=== PATIENT | female | born 1965 | race Caucasian/White ===

== ENCOUNTER 2017-08-08 06:30 | Inpatient (IN) | payer OTHER, MEDICARE ==
[~2017-08-08 06:30] MED LIST: Acetaminophen 500 MG Tab PO ONE; Celecoxib 200 MG Cap PO ONE; Gabapentin 300 MG Cap PO ONE; Scopolamine 1.5 MG Transdermal Patch TRDERM ONE
[2017-08-08] MEDS ORDERED: cefOXitin 2 GM Vial ONE (06:38)
[2017-08-08] MEDS ORDERED: Dextrose 5%-Lactated Ringers 1,000 ML IV SCH (07:00)
[2017-08-08] MEDS ORDERED: fentaNYL 250 MCG/5 ML SDV ONE ×3 (07:14→09:25)
[2017-08-08] MEDS ORDERED: Rocuronium 50 MG/5 ML Vial ONE ×2 (07:15→08:51)
[2017-08-08] MEDS ORDERED: Ondansetron 4 MG/2 ML SDV ONE (07:15)
[2017-08-08] MEDS ORDERED: Neostigmine Methylsulfate 1 MG/ML 5 ML Syringe ONE (07:15)
[2017-08-08] MEDS ORDERED: Propofol 200 MG/20 ML SDV ONE (07:15)
[2017-08-08] MEDS ORDERED: Dexamethasone 4 MG/ML SDV ONE (07:15)
[2017-08-08] MEDS ORDERED: Lactated Ringers 1,000 ML ONE (07:16)
[2017-08-08] MEDS ORDERED: Albuterol/Ipratropium 3.0-0.5 MG/3 ML Neb Soln NEB ONE (07:30)
[2017-08-08] MEDS ORDERED: cefOXitin 2 GM in Sodium Chloride 0.9% 50 ML IV ONE (08:00)
[2017-08-08] MEDS ORDERED: Ketamine 500 MG/5 ML MDV IV ONE (08:15)
[2017-08-08] MEDS ORDERED: Lidocaine 0.4%/D5W 2 GM/500 ML BAG IV SCH (08:15)
[2017-08-08] MEDS ORDERED: Lidocaine 2% 100 MG/5 ML Syringe IVPUSH ONE (08:15)
[2017-08-08] MEDS ORDERED: Ropivacaine 60 ML, Dexamethasone 8 MG, EPINEPHrine 0.4 MG, Sodium Chloride 0.9% 17.6 ML NERVRT SCH ×4 (08:15)
[2017-08-08] MEDS ORDERED: Meperidine PF 75 MG/ML Syringe IM ONE (12:15)
[2017-08-08] MEDS ORDERED: SCOPOLAMINE PATCH CHECK TOP SCH (13:00)
[2017-08-08] MEDS ORDERED: Labetalol 20 MG/4 ML Syringe IVPUSH PRN (13:00)
[2017-08-08] MEDS ORDERED: diphenhydrAMINE 50 MG/ML SDV IVPUSH PRN (13:00)
[2017-08-08] MEDS ORDERED: Albuterol/Ipratropium 3.0-0.5 MG/3 ML Neb Soln INH PRN (13:00)
[2017-08-08] MEDS ORDERED: Metoclopramide 10 MG/2 ML SDV IVPUSH PRN (13:00)
[2017-08-08] MEDS ORDERED: Ondansetron 4 MG/2 ML SDV IVPUSH PRN (13:00)
[2017-08-08] MEDS ORDERED: hydrOXYzine HCl 100 MG/2 ML SDV IM PRN ×2 (13:00→16:29)
[2017-08-08] MEDS: Dextrose 5%-Lactated Ringers 1,000 ML IV SCH (13:46)
[2017-08-08] MEDS ORDERED: Pantoprazole 40 MG Vial IVPUSH SCH (14:00)
[2017-08-08] MEDS: Gabapentin 250 MG/5 ML Solution ML 470 ML Bottle PO SCH ×2 (14:21→20:09)
[2017-08-08] MEDS: Lisinopril 20 MG Tab PO SCH (14:21)
[2017-08-08] MEDS: Albuterol/Ipratropium 3.0-0.5 MG/3 ML Neb Soln INH SCH ×2 (14:35→21:19)
[2017-08-08] MEDS: cefOXitin 2 GM in Sodium Chloride 0.9% 50 ML IV SCH ×2 (14:49→20:09)
[2017-08-08] MEDS ORDERED: MVI, Adult with Vitamin K 10 ML, Thiamine 200 MG, Chromium/Copper/Mang/Selen/Zn 1 ML in... IV SCH ×4 (16:00)
[2017-08-08] MEDS ORDERED: Meperidine PF 75 MG/ML Syringe IM PRN (16:24)
[2017-08-08] MEDS ORDERED: Coagulation Factor VIIa Recombinant (per MCG) 2 MG Vial IVPUSH ONE (16:45)
[2017-08-08] MEDS: Acetaminophen Soln 650 MG/20.3 ML UD Cup PO SCH ×2 (16:53→21:19)
--- NOTE | 2017-08-08 17:28 | PCM.CONS ---
H&P History of Present Illness - General Date of Service: 08/08/17 Admit Problem/Dx: Admission Diagnosis/Problem Admission Diagnosis/Problem Sanjuanita-en-Y gastrojejunostomy Source of Information: Patient, Family, Provider, RN History Limitations: Reports: No Limitations - History of Present Illness Initial Comments - Free Text/Narative: I was asked to see Waleska today after a CODE BLUE was called this afternoon. She had recently come to the floor after a laparoscopic gastric bypass procedure. While the nurse was providing care she had tonic-clonic type movements that involved her entire body. CODE BLUE was called at this point and the lidocaine infusion was discontinued. The patient did not require any medications to break the seizure like activity and it dissipated. She was confused for a short while afterwards but seems to be clearing up. She reports severe abdominal pain as well as severe back pain which is chronic but worse than usual. She does not feel short of breath. Her systolic blood pressure is greater than 213 and she did receive a dose of labetalol during the CODE BLUE. Oxygenation is adequate with supplemental oxygen and her heart rate is in the normal range. She reports no history of seizures. She did not take her blood pressure medication this morning. Lower Back Pain Score (Numeric/FACES): 2 Back Pain Score (Numeric/FACES): 10 - Related Data Allergies/Adverse Reactions: Allergies Allergy/AdvReac Type Severity Reaction Status Date / Time bupropion Allergy Anxiety Verified 08/06/17 09:53 chlorpheniramine Allergy Dizziness Verified 08/06/17 09:53 [From Actifed Cold-Allergy] phenylephrine Allergy Dizziness Verified 08/06/17 09:53 [From Actifed Cold-Allergy] triprolidine Allergy Dizziness Verified 08/06/17 09:53 [From Actifed Cold-Allergy] amoxicillin AdvReac Nausea and Verified 08/08/17 11:50 Vomiting dicloxacillin AdvReac Nausea and Verified 08/08/17 11:50 Vomiting levofloxacin AdvReac Nausea and Verified 08/08/17 11:50 Vomiting moxifloxacin AdvReac Nausea and Verified 08/08/17 11:50 Vomiting pseudoephedrine AdvReac Nausea and Verified 08/08/17 11:50 Vomiting sertraline AdvReac Nausea and Verified 08/08/17 11:50 Vomiting Home Medications: Home Meds Albuterol Sulfate [Proair Respiclick] 2 inh IH Q4H PRN 08/06/17 [History] Aspirin [Adult Low Dose Aspirin EC] 81 mg PO DAILY 08/06/17 [History] Betamethasone/Propylene Glyc [Diprolene 0.05%] 1 applic TP BID 08/06/17 [History ] Celecoxib [CeleBREX] 200 mg PO DAILY 08/06/17 [History] DULoxetine [Cymbalta] 60 mg PO BID 08/06/17 [History] Diclofenac Sodium [Voltaren 0.1% Ophth Soln] 1 applic TOP TID 08/06/17 [History] Estradiol 2 mg PO DAILY 08/06/17 [History] Gabapentin [Neurontin] 600 mg PO QID PRN 08/06/17 [History] Levothyroxine Sodium [Unithroid] 200 mcg PO DAILY 08/06/17 [History] Lisinopril 40 mg PO DAILY 08/06/17 [History] Montelukast [Singulair] 10 mg PO DAILY 08/06/17 [History] Multivitamin with Minerals [Multiple Vitamin] 1 tab PO DAILY 08/06/17 [History] Omeprazole 20 mg PO ASDIRECTED PRN 08/06/17 [History] buPROPion HCl [Wellbutrin Xl] 300 mg PO DAILY 08/06/17 [History] busPIRone [Buspar] 10 mg PO TID 08/06/17 [History] hydrOXYzine Pamoate [Vistaril] 25 mg PO Q6H PRN 08/06/17 [History] tiZANidine HCl [Zanaflex] 2 mg PO DAILY 08/06/17 [History] Past Medical History HEENT History: Reports: Otitis Media, Sinusitis Cardiovascular History: Reports: High Cholesterol, Hypertension Respiratory History: Reports: Asthma Gastrointestinal History: Reports: GERD Genitourinary History: Reports: None [employer] History: Reports: Musculoskeletal History: Reports: Back Pain, Chronic, Fracture, Neck Pain, Chronic, Other (See Below) Other Musculoskeletal History: CMT, 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; degenerative disc disease; bilateral fascets lower spine Neurological History: Reports: Migraines Psychiatric History: Reports: Anxiety, Depression Endocrine/Metabolic History: Reports: Other (See Below) Other Endocrine/Metabolic History: black thyroid syndrome Dermatologic History: Reports: Eczema - Infectious Disease History Infectious Disease History: Reports: Chicken Pox - Past Surgical History HEENT Surgical History: Reports: LASIK, Naso-Sinus Surgery, Tonsillectomy Cardiovascular Surgical History: Reports: None Respiratory Surgical History: Reports: None GI Surgical History: Reports: None Female Surgical History: Reports: Section, Hysterectomy, Salpingo- Oophorectomy Endocrine Surgical History: Reports: Thyroidectomy Neurological Surgical History: Reports: Other (See Below) Musculoskeletal Surgical History: Reports: None Dermatological Surgical History: Reports: None Social & Family History - Family History Family Medical History: Noncontributory - Tobacco Use Smoking Status *Q: Never Smoker - Caffeine Use Caffeine Use: Reports: None - Alcohol Use Alcohol Use History: No - Recreational Drug Use Recreational Drug Use: No H&P Review of Systems - Review of Systems: Review Of Systems: See Below Free Text/Narrative: A complete 12 point review of systems was obtained. Pertinent positives and negatives are noted in the history of present illness. All other systems were reviewed and were negative except as noted. Exam - Exam Exam: See Below - Vital Signs Vital Signs: Last Vital Signs Temp 36.5 C 08/08/17 16:00 Pulse 84 08/08/17 16:00 Resp 16 08/08/17 16:00 BP 128/69 08/08/17 16:00 Pulse Ox 95 08/08/17 16:00 Weight: 129.501 kg - Exam Quality Assessment: Supplemental Oxygen General: Alert, Oriented, Cooperative, Mild Distress HEENT: Conjunctiva Clear. No: Mucosa Moist & [place] (dry), Scleral Icterus Neck: Supple, Trachea Midline. No: Lymphadenopathy Lungs: Clear to Auscultation, Normal Respiratory Effort Cardiovascular: Regular Rate, Regular Rhythm. No: Systolic Murmur GI/Abdominal Exam: Soft, No Distention, Tender Extremities: No Pedal Edema. No: Increased Warmth Peripheral Pulses: 2+: Dorsalis Pedis (L), Dorsalis Pedis (R) Skin: Warm, Dry Neuro Extensive - Mental Status: Alert, Oriented x3, Slow Response to Commands Neuro Extensive - Motor, Sensory, Reflexes: CN II-XII Intact, Tremor ( Occasional whole-body which). No: Dysarthria, Expressive Aphasia, Hemeplagia (R ), Hemeplagia (L), Abnormal Motor Psychiatric: Alert, Anxious - Patient Data Lab Results Last 24 hrs: Laboratory Results - last 24 hr 08/08/17 08/08/17 08/08/17 Range/Units 07:00 07:00 07:00 WBC (4.5-11.0) K/uL RBC (3.30-5.50) M/uL Hgb (12.0-15.0) g/dL Hct (36.0-48.0) % MCV (80-98) fL MCH (27-31) pg MCHC (32-36) % Plt Count (150-400) K/uL Sodium 136 L (140-148) mmol/L Potassium 4.6 (3.6-5.2) mmol/L Chloride 101 (100-108) mmol/L Carbon Dioxide 28 (21-32) mmol/L Anion Gap 11.6 (5.0-14.0) mmol/L BUN 14 (7-18) mg/dL Creatinine 0.8 (0.6-1.0) mg/dL Est Cr Clr Drug Dosing 67.27 mL/min Estimated GFR (MDRD) > 60 (>60) Glucose 111 H (74-106) mg/dL Hemoglobin A1c 5.5 (4.5-6.2) % Calcium 9.4 (8.5-10.1) mg/dL Phosphorus 4.7 (2.5-4.9) mg/dL Magnesium 2.1 (1.8-2.4) mg/dL Total Bilirubin 0.3 (0.2-1.0) mg/dL AST 20 (15-37) U/L ALT 30 (12-78) U/L Alkaline Phosphatase 104 (46-116) U/L Total Protein 6.8 (6.4-8.2) g/dL Albumin 3.8 (3.4-5.0) g/dL Globulin 3.0 (2.3-3.5) g/dL Albumin/Globulin Ratio 1.3 (1.2-2.2) Blood Type O POSITIVE Gel Antibody Screen Negative 08/08/17 Range/Units 07:00 WBC 9.0 (4.5-11.0) K/uL RBC 4.69 (3.30-5.50) M/uL Hgb 14.2 (12.0-15.0) g/dL Hct 43.5 (36.0-48.0) % MCV 93 (80-98) fL MCH 30 (27-31) pg MCHC 33 (32-36) % Plt Count 318 (150-400) K/uL Sodium (140-148) mmol/L Potassium (3.6-5.2) mmol/L Chloride (100-108) mmol/L Carbon Dioxide (21-32) mmol/L Anion Gap (5.0-14.0) mmol/L BUN (7-18) mg/dL Creatinine (0.6-1.0) mg/dL Est Cr Clr Drug Dosing mL/min Estimated GFR (MDRD) (>60) Glucose (74-106) mg/dL Hemoglobin A1c (4.5-6.2) % Calcium (8.5-10.1) mg/dL Phosphorus (2.5-4.9) mg/dL Magnesium (1.8-2.4) mg/dL Total Bilirubin (0.2-1.0) mg/dL AST (15-37) U/L ALT (12-78) U/L Alkaline Phosphatase (46-116) U/L Total Protein (6.4-8.2) g/dL Albumin (3.4-5.0) g/dL Globulin (2.3-3.5) g/dL Albumin/Globulin Ratio (1.2-2.2) Blood Type Gel Antibody Screen Result Diagrams: 08/08/17 07:00 08/08/17 07:00 Consult PN Assessment/Plan POD#: 0 Procedures: Procedures BLOOD TYPING SEROLOGIC ABO (01/17/17) BLOOD TYPING SEROLOGIC RH(D) (01/17/17) RBC ANTIBODY SCREEN (01/17/17) Problem List Initiated/Reviewed/Updated: Yes My Orders Last 24 Hours: My Active Orders 08/08/17 13:30 Lisinopril [Prinivil] 40 mg PO DAILY Plan: ASSESSMENT AND PLAN - Seizure-like episode - tonic-clonic whole-body movements. No history of seizures. These resolved shortly after the lidocaine infusion was discontinued. There is potential for seizures or seizure-like activity with some of the anesthesia medications as ketamine as well as the lidocaine and clinically doing better since the lidocaine was stopped. There are no focal neurologic findings to suggest cerebrovascular accident. Episode dissipated quickly and no abortive medications were required. -Cardiac monitoring -Close clinical monitoring -Blood pressure management as below -Agree with stopping lidocaine Accelerated hypertension - systolic blood pressure greater than 200 though it is improving with the labetalol. She did not take her lisinopril this morning prior to surgery. -Restart lisinopril -Labetalol if needed [id number]-Zjjvm syndrome - chronic pain as well as some distal weakness. -Restart home medications as able Morbid obesity status post Sanjuanita-en-Y gastric bypass - postop cares per surgical team. Tony Castaneda M.D. Requesting Provider: Dr. Burgess Date Consult Requested: 08/08/17 Reason for Consult: Seizure-like episode Patient History Reviewed: Yes Admission H&P Reviewed: Yes Notified Requestor: No Time Spent (in minutes): 60
[2017-08-08] MEDS ORDERED: Heparin Sodium 5,000 Units/ML Vial SUBCUT SCH (18:00)
[2017-08-08] MEDS ORDERED: HYDROmorphone 1 MG/ML Syringe IVPUSH PRN (19:27)
[2017-08-08] MEDS ORDERED: Coagulation Factor VIIa Recombinant (per MCG) 2 MG Vial IVPUSH STA (19:27)
[2017-08-08] MEDS ORDERED: Iohexol 647 MG/ML 50 ML SDV PO SCH (23:45)
[2017-08-09] MEDS: Dextrose 5%-Lactated Ringers 1,000 ML IV SCH ×2 (00:36→06:56)
[2017-08-09] MEDS: cefOXitin 2 GM in Sodium Chloride 0.9% 50 ML IV SCH ×2 (02:52→09:25)
[2017-08-09] MEDS: Acetaminophen Soln 650 MG/20.3 ML UD Cup PO SCH ×4 (02:59→22:10)
[2017-08-09] MEDS: Albuterol/Ipratropium 3.0-0.5 MG/3 ML Neb Soln INH SCH ×4 (07:30→22:23)
[2017-08-09] MEDS ORDERED: Ondansetron 4 MG Tab.DIS PO PRN (07:58)
[2017-08-09] MEDS ORDERED: ALBUTEROL SULFATE IH PRN (07:59)
[2017-08-09] MEDS ORDERED: Non-Formulary Medication 1 Each (Hydroxyzine Pamoate [Vistaril] 25 MG) PO PRN (07:59)
[2017-08-09] MEDS ORDERED: Dextrose 5%-Lactated Ringers 1,000 ML IV SCH (08:00)
[2017-08-09] MEDS ORDERED: hydrOXYzine HCl 25 MG Tab PO PRN (08:20)
[2017-08-09] MEDS ORDERED: Albuterol 8 GM Inhaler INH PRN (08:22)
--- NOTE | 2017-08-09 08:55 | CR ---
UGI wo KUB HISTORY: Post Sanjuanita-en-Y bypass. COMPARISON: None FINDINGS: Contrast is seen in the distal esophagus and proximal small bowel. No extravasation of cont rast. Surgical drain present in this region. No obstruction seen. Impression: Gastric bypass without evidence for complication.
[2017-08-09] MEDS ORDERED: Non-Formulary Medication 1 Each (Lisinopril [Lisinopril] 40 MG) PO SCH (09:00)
[2017-08-09] MEDS ORDERED: Non-Formulary Medication 1 Each (Estradiol [Estradiol] 2 MG) PO SCH (09:00)
[2017-08-09] MEDS ORDERED: LEVOTHYROXINE SODIUM 200 MCG PO SCH (09:00)
[2017-08-09] MEDS ORDERED: Non-Formulary Medication 1 Each (Duloxetine [Cymbalta] 60 MG) PO SCH (09:00)
[2017-08-09] MEDS ORDERED: Diclofenac Sodium 0.1% Ophth Soln 5 ML Bottle EYERT SCH (09:00)
[2017-08-09] MEDS ORDERED: TIZANIDINE HCL 2 MG PO SCH (09:00)
[2017-08-09] MEDS ORDERED: Lisinopril 20 MG Tab PO SCH (09:00)
[2017-08-09] MEDS: Gabapentin 250 MG/5 ML Solution ML 470 ML Bottle PO SCH ×3 (09:25→22:05)
[2017-08-09] MEDS: buPROPion 100 MG Tab PO SCH ×5 (09:26→15:25)
[2017-08-09] MEDS: tiZANidine 2 MG Tab PO SCH (09:27)
[2017-08-09] MEDS: busPIRone 10 MG Tab PO SCH ×5 (09:27→22:08)
[2017-08-09] MEDS: Celecoxib 200 MG Cap PO SCH (09:28)
[2017-08-09] MEDS: Lisinopril 20 MG Tab PO SCH (09:28)
[2017-08-09] MEDS: Montelukast 10 MG Tab PO SCH (09:29)
[2017-08-09] MEDS: DULoxetine 30 MG Cap PO SCH ×2 (09:29→22:08)
[2017-08-09] MEDS: Estradiol 0.5 MG Tab PO SCH (09:31)
[2017-08-09] MEDS: Levothyroxine 100 MCG Tab PO SCH (11:46)
--- NOTE | 2017-08-09 14:59 | PCM.CONSN ---
- General Info Date of Service: 08/09/17 Subjective Update: This patient has been stable since yesterday when she experienced a generalized tonic-clonic seizure in the postoperative period. She has felt fairly well since then, denies any other neurologic symptoms, hemodynamically stable and afebrile. - Review of Systems General: Denies: Fever, Chills Pulmonary: Reports: No Symptoms Cardiovascular: Reports: No Symptoms Gastrointestinal: Reports: Abdominal Pain. Denies: Diarrhea, Difficulty Swallowing, Nausea, Vomiting Neurological: Reports: No Symptoms - Patient Data Vitals - Most Recent: Last Vital Signs Temp 98.1 F 08/09/17 14:00 Pulse 78 08/09/17 14:00 Resp 18 08/09/17 14:00 BP 121/47 L 08/09/17 14:00 Pulse Ox 92 L 08/09/17 14:00 Weight - Most Recent: 285 lb 8.013 oz I&O - Last 24 Hours: Intake & Output 08/08/17 08/09/17 08/09/17 22:59 06:59 14:59 Intake Total 1537 2385 240 Output Total 1355 1170 Balance 182 1215 240 Lab Results Last 24 Hours: Laboratory Results - last 24 hr 08/09/17 Range/Units 04:50 WBC 20.0 H (4.5-11.0) K/uL RBC 3.83 (3.30-5.50) M/uL Hgb 11.5 L D (12.0-15.0) g/dL Hct 36.2 (36.0-48.0) % MCV 95 (80-98) fL MCH 30 (27-31) pg MCHC 32 (32-36) % Plt Count 383 (150-400) K/uL Med Orders - Current: Current Medications Acetaminophen (Tylenol) 650 mg PO Q6H [facility] Last Admin: 08/09/17 09:28 Dose: 650 mg Albuterol (Ventolin Hfa) 0 gm INH Q4H PRN PRN Reason: Shortness of Breath Albuterol/Ipratropium (Duoneb 3.0-0.5 Mg/3 Ml) 3 ml INH QIDRT PAIGE Last Admin: 08/09/17 10:57 Dose: 3 ml Albuterol/Ipratropium (Duoneb 3.0-0.5 Mg/3 Ml) 3 ml INH ASDIRECTED PRN PRN Reason: BREATHING Bupropion HCl (Wellbutrin) 100 mg PO TID [facility] Last Admin: 08/09/17 11:41 Dose: Not Given Buspirone HCl (Buspar) 10 mg PO TID [facility] Last Admin: 08/09/17 09:45 Dose: 10 mg Celecoxib (Celebrex) 200 mg PO DAILY@0800 [facility] Last Admin: 08/09/17 09:28 Dose: 200 mg Cyanocobalamin (Vitamin B12) 1,000 mcg IM ONETIME ONE Stop: 08/10/17 09:01 Diclofenac Sodium (Voltaren 1% Gel) 0 gm TOP TID [facility] Diphenhydramine HCl (Benadryl) 25 - 50 mg IVPUSH Q4H PRN PRN Reason: ITCHING Duloxetine HCl (Cymbalta) 60 mg PO BID [facility] Last Admin: 08/09/17 09:29 Dose: 60 mg Estradiol (Estradiol) 2 mg PO DAILY [facility] Last Admin: 08/09/17 09:31 Dose: 2 mg Gabapentin (Neurontin) 300 mg PO TID [facility] Last Admin: 08/09/17 09:25 Dose: 300 mg Heparin Sodium (Porcine) (Heparin Sodium) 5,000 units SUBCUT Q12H [facility] Hydromorphone HCl (Dilaudid) 1 mg IVPUSH Q1H PRN PRN Reason: Pain Last Admin: 08/09/17 05:12 Dose: 1 mg Hydroxyzine HCl (Vistaril) 75 mg IM Q6H PRN PRN Reason: Pain Hydroxyzine HCl (Atarax) 25 mg PO Q6H PRN PRN Reason: Nausea Dextrose/Lactated Ringer's (Dextrose 5%-Lactated Ringers) 1,000 mls @ 100 mls/ hr IV ASDIRECTED [facility] Multivitamins/Minerals 10 ml/Thiamine HCl 200 mg/ Chromium/Copper/Manganese/ Seleni/Zn 1 ml/ Dextrose/Lactated Ringer's 1,013 mls @ 100 mls/hr IV DAILY@ 1600 [facility] Labetalol HCl (Normodyne) 5 - 15 mg IVPUSH Q1H PRN PRN Reason: SBP over 160 OR DBP over 95 Last Admin: 08/08/17 11:45 Dose: 5 mg Levothyroxine Sodium (Synthroid) 200 mcg PO ACBREAKFAST [facility] Last Admin: 08/09/17 11:46 Dose: 200 mcg Lisinopril (Prinivil) 40 mg PO DAILY [facility] Last Admin: 08/09/17 09:28 Dose: 40 mg Meperidine HCl (Demerol) 75 mg IM Q6H PRN PRN Reason: Pain Metoclopramide HCl (Reglan) 10 mg IVPUSH Q6H PRN PRN Reason: NAUSEA NOT CONTROL BY ZOFRAN Miscellaneous Information (Remove Patch) 1 ea TRDERM ONETIME ONE Stop: 08/10/17 10:01 Montelukast Sodium (Singulair) 10 mg PO DAILY [facility] Last Admin: 08/09/17 09:29 Dose: 10 mg Scopolamine Patch (Check) 1 each TOP DAILY [facility] Stop: 08/10/17 13:01 Last Admin: 08/09/17 09:31 Dose: Not Given Non-Formulary Medication (Betamethasone/Propylene Glyc [Diprolene 0.05%]) 1 applic TP BID [facility] Ondansetron HCl (Zofran) 4 mg IVPUSH Q4H PRN PRN Reason: Nausea/Vomiting Ondansetron HCl (Zofran Odt) 4 mg PO Q4H PRN PRN Reason: Nausea/Vomiting Pantoprazole Sodium (Protonix Granules) 40 mg PO Q24H [facility] Tizanidine HCl (Zanaflex) 2 mg PO DAILY [facility] Last Admin: 08/09/17 09:27 Dose: 2 mg Discontinued Medications Acetaminophen (Tylenol Extra Strength) 1,000 mg PO ONETIME ONE Stop: 08/08/17 06:31 Last Admin: 08/08/17 07:16 Dose: 1,000 mg Albuterol/Ipratropium (Duoneb 3.0-0.5 Mg/3 Ml) 3 ml NEB ONETIME ONE Stop: 08/08/17 07:31 Last Admin: 08/08/17 07:47 Dose: 3 ml Cefoxitin Sodium (Mefoxin) Confirm Administered Dose 2 gm .ROUTE .STK-MED ONE Stop: 08/08/17 06:39 Last Admin: 08/08/17 07:37 Dose: 2 gm Celecoxib (Celebrex) 200 mg PO ONETIME ONE Stop: 08/08/17 06:31 Last Admin: 08/08/17 07:15 Dose: 200 mg Ropivacaine 60 ml/Dexamethasone 8 mg/Epinephrine HCl 0.4 mg/ Sodium Chloride 17.6 ml 0 ml NERVRT ASDIRECTED [facility] Last Admin: 08/08/17 08:58 Dose: 2 syringe Dexamethasone (Dexamethasone) Confirm Administered Dose 4 mg .ROUTE .STK-MED ONE Stop: 08/08/17 07:16 Factor VIIa (Recombinant) (Novoseven Rt) 2,000 mcg IVPUSH ONETIME ONE Stop: 08/08/17 16:46 Last Admin: 08/08/17 16:46 Dose: 2,000 mcg Factor VIIa (Recombinant) (Novoseven Rt) 2,000 mcg IVPUSH STAT STA Stop: 08/08/17 19:28 Last Admin: 08/08/17 20:00 Dose: 2,000 mcg Fentanyl (Sublimaze) Confirm Administered Dose 250 mcg .ROUTE .STK-MED ONE Stop: 08/08/17 07:15 Fentanyl (Sublimaze) Confirm Administered Dose 250 mcg .ROUTE .STK-MED ONE Stop: 08/08/17 08:45 Fentanyl (Sublimaze) Confirm Administered Dose 250 mcg .ROUTE .STK-MED ONE Stop: 08/08/17 09:26 Gabapentin (Neurontin) 600 mg PO ONETIME ONE Stop: 08/08/17 06:31 Last Admin: 08/08/17 07:16 Dose: 600 mg Glycopyrrolate () Confirm Administered Dose 1 mg .ROUTE .STK-MED ONE Stop: 08/08/17 07:16 Heparin Sodium (Porcine) (Heparin Lock Flush 100 Units/Ml) Confirm Administered Dose 1,000 units .ROUTE .STK-MED ONE Stop: 08/08/17 07:18 Last Admin: 08/08/17 09:13 Dose: 500 units Hydroxyzine HCl (Vistaril) 75 - 100 mg IM Q4H PRN PRN Reason: pain Last Admin: 08/08/17 12:29 Dose: 75 mg Cefoxitin Sodium 2 gm/ Sodium (Chloride) 50 mls @ 100 mls/hr IV ONETIME ONE Stop: 08/08/17 08:29 Last Admin: 08/08/17 07:48 Dose: 100 mls/hr Dextrose/Lactated Ringer's (Dextrose 5%-Lactated Ringers) 1,000 mls @ 100 mls/ hr IV ASDIRECTED [facility] Last Admin: 08/08/17 07:11 Dose: 100 mls/hr Lidocaine HCl/Dextrose (Lidocaine 2 Gm/D5w 500 Ml) 2 gm in 500 mls @ 30 mls/hr IV .[id number] [facility] PRN Reason: 2 MG/MIN Last Admin: 08/08/17 08:15 Dose: 2 mg/min, 30 mls/hr Ketamine HCl 100 mg/ Sodium (Chloride) 100 mls @ 16.5 mls/hr IV ASDIRECTED [facility] PRN Reason: 5 MCG/KG/MIN Stop: 08/08/17 14:19 Lactated Ringer's (Ringers, Lactated) Confirm Administered Dose 1,000 mls @ as directed .ROUTE .STK-MED ONE Stop: 08/08/17 07:17 Dextrose/Lactated Ringer's (Dextrose 5%-Lactated Ringers) 1,000 mls @ 175 [facility]ls[facility] Last Admin: 08/09/17 06:56 Dose: 175 mls/hr Multivitamins/Minerals 10 ml/Thiamine HCl 200 mg/ Chromium/Copper/Manganese/ Seleni/Zn 1 ml/ Dextrose/Lactated Ringer's 1,013 mls @ 175 mls/hr IV DAILY@ 1600 [facility] Last Admin: 08/08/17 18:06 Dose: 175 mls/hr Cefoxitin Sodium 2 gm/ Sodium (Chloride) 50 mls @ 100 mls/hr IV Q6H [facility] Stop: 08/09/17 08:29 Last Admin: 08/09/17 09:25 Dose: 100 mls/hr Iohexol (Omnipaque-300) 50 ml PO .ASDIRECTED [facility] Last Admin: 08/09/17 04:18 Dose: 50 ml Ketamine HCl (Ketalar) 28 mg IV ONETIME ONE Stop: 08/08/17 08:16 Last Admin: 08/08/17 12:39 Dose: Not Given Lidocaine HCl (Xylocaine 2%) 130 mg IVPUSH ONETIME ONE Stop: 08/08/17 08:16 Last Admin: 08/08/17 12:39 Dose: Not Given Lisinopril (Prinivil) 40 mg PO DAILY [facility] Last Admin: 08/09/17 09:29 Dose: 40 mg Meperidine HCl (Demerol) 75 mg IM ONETIME ONE Stop: 08/08/17 12:16 Last Admin: 08/08/17 12:28 Dose: 75 mg Neostigmine Methylsulfate (Neostigmine) Confirm Administered Dose 5 mg .ROUTE .STK-MED ONE Stop: 08/08/17 07:16 Ondansetron HCl (Zofran) Confirm Administered Dose 4 mg .ROUTE .STK-MED ONE Stop: 08/08/17 07:16 Pantoprazole Sodium (Protonix Iv) 40 mg IVPUSH Q24H [facility] Last Admin: 08/08/17 14:20 Dose: 40 mg Propofol (Diprivan 20 Ml) Confirm Administered Dose 200 mg .ROUTE .STK-MED ONE Stop: 08/08/17 07:16 Rocuronium [place] (Zemuron) Confirm Administered Dose 50 mg .ROUTE .STK-MED ONE Stop: 08/08/17 07:16 Rocuronium [place] (Zemuron) Confirm Administered Dose 50 mg .ROUTE .STK-MED ONE Stop: 08/08/17 08:52 Scopolamine (Transderm-Scop) 1.5 mg TRDERM ONETIME ONE Stop: 08/08/17 06:31 Last Admin: 08/08/17 07:17 Dose: 1.5 mg - Exam Quality Assessment: DVT Prophylaxis General: Alert, Oriented, Cooperative, No Acute Distress Lungs: Clear to Auscultation, Normal Respiratory Effort Cardiovascular: Regular Rate, Regular Rhythm, No Murmurs GI/Abdominal Exam: Soft, No Organomegaly, Tender. No: Distended, Guarding, Rigid, Rebound Extremities: Non-Tender, No Pedal Edema Skin: Warm, Dry Consult PN Assessment/Plan Procedures: Procedures BLOOD TYPING SEROLOGIC ABO (01/17/17) BLOOD TYPING SEROLOGIC RH(D) (01/17/17) RBC ANTIBODY SCREEN (01/17/17) Problem List Initiated/Reviewed/Updated: Yes Plan: ASSESSMENT AND PLAN - Seizure- tonic-clonic whole-body movements. No history of seizures. These resolved shortly after the lidocaine infusion was discontinued. There is potential for seizures or seizure-like activity with some of the anesthesia medications as ketamine as well as the lidocaine and clinically doing better since the lidocaine was stopped. There are no focal neurologic findings to suggest cerebrovascular accident. Episode dissipated quickly and no abortive medications were required. No further evidence of seizure activity since yesterday afternoon. -Cardiac monitoring -Close clinical monitoring -Blood pressure management as below -Agree with stopping lidocaine Accelerated hypertension - blood pressure under much better control since yesterday -Restart lisinopril -Labetalol if needed Tqqrvss-Ipwnf-Dukrc syndrome - chronic pain as well as some distal weakness. -Restart home medications as able Morbid obesity status post Sanjuanita-en-Y gastric bypass - postop cares per surgical team.
[2017-08-09] MEDS: MVI, Adult with Vitamin K 10 ML, Thiamine 200 MG, Chromium/Copper/Mang/Selen/Zn 1 ML in... IV SCH ×4 (15:15)
[2017-08-09] MEDS: Pantoprazole 40 MG Delayed-Release Granules 1 Packet PO SCH (15:16)
[2017-08-09] MEDS: Diclofenac Sodium 1% Gel 100 GM Tube TOP SCH ×2 (16:51→22:09)
--- NOTE | 2017-08-09 17:08 | PN ---
DATE OF SERVICE: 08/09/2017 HISTORY OF PRESENT ILLNESS: Waleska is postop day 1 following a Sanjuanita-en-Y gastric bypass surgery. She had excessive oozing in her NYA drain. She was given 2 doses of factor VII. She also had a seizure after coming back up to the floor from the recovery room, thought to be secondary to lidocaine etiology. Vital signs have been stable. She is alert and orientated. Nursing staff thought she was somewhat confused, but at the time of report, she seemed to be clear and seemed to be alert and orientated. REVIEW OF SYSTEMS: Remainder of review of systems negative for any pertinent positives and negatives. PHYSICAL EXAMINATION: GENERAL: Waleska Markham is a 52-year-old female on TPR. VITAL SIGNS: Temperature is not recorded, pulse 88, blood pressure 138/62, respirations are 18, and O2 of 92%. HEENT: Negative. NECK: Supple. HEART: Regular rate and rhythm. LUNGS: Clear. ABDOMEN: Dressings dry and intact. Abdominal binder is on. NYA drain intact, draining a red drainage, total of 400 mL per 24 hours. EXTREMITIES: Without peripheral edema. GENITOURINARY: Tena catheter intact. ASSESSMENT: 1. Laparoscopic Sanjuanita-en-Y gastric bypass surgery and insertion of central vein catheter for morbid obesity and inadequate venous access. 2. Excessive oozing from NYA drain, requiring factor VII x2 in postop. 3. Postop seizure. PLAN: 1. Decrease IV to 100 mL per hour. 2. Step 2 gastric bypass diet without cereal. 3. Discontinue Tena catheter. 4. Dressing off. 5. May shower. 6. To restart home medication. Wellbutrin was changed from sustained or XL to 100 mg p.o. t.i.d. 7. BuSpar 10 mg t.i.d. 8. Voltaren 1% gel topical t.i.d. 9. Cymbalta 60 mg p.o. b.i.d. 10.Estradiol 2 mg p.o. daily. 11.Singulair 10 mg p.o. daily. 12.Zanaflex 2 mg p.o. daily scheduled. DISCUSSION: 1. Regarding importance of compliance with gastric bypass diet. Nursing staff thought the patient was eating from her 's bowl that he brought from home. 2. The patient was instructed not to take her home medication. She had taken her Wellbutrin XL. Pharmacy staff will discuss the importance of immediate-release medication versus slow-acting in regard to absorption following Sanjuanita-en-Y gastric bypass surgery. We will evaluate p.r.n. or in a.m. Cori Lopez PA-C /[id number]
[2017-08-09] MEDS ORDERED: Albuterol/Ipratropium 3.0-0.5 MG/3 ML Neb Soln ONE (22:21)
[2017-08-10] MEDS: Acetaminophen Soln 650 MG/20.3 ML UD Cup PO SCH ×5 (04:05→21:00)
[2017-08-10] MEDS ORDERED: Albuterol/Ipratropium 3.0-0.5 MG/3 ML Neb Soln ONE (07:23)
[2017-08-10] MEDS: Albuterol/Ipratropium 3.0-0.5 MG/3 ML Neb Soln INH SCH ×4 (07:27→21:05)
[2017-08-10] MEDS ORDERED: Magnesium Hydroxide 400 MG/5 ML Susp 30 ML Cup PO PRN (07:48)
[2017-08-10] MEDS ORDERED: Sodium Chloride 0.9% 10 ML Syringe IV PRN (07:48)
[2017-08-10] MEDS ORDERED: Magnesium Hydroxide 400 MG/5 ML Susp 30 ML Cup PO ONE (08:00)
[2017-08-10] MEDS: buPROPion 100 MG Tab PO SCH ×3 (08:03→20:58)
[2017-08-10] MEDS: Celecoxib 200 MG Cap PO SCH (08:03)
[2017-08-10] MEDS: Levothyroxine 100 MCG Tab PO SCH (08:04)
[2017-08-10] MEDS ORDERED: Cyanocobalamin (Vitamin B12) 1,000 MCG/ML SDV IM ONE (09:00)
[2017-08-10] MEDS: Betamethasone Dipropionate 0.05% Crm 15 GM Tube TOP SCH ×4 (09:33→21:07)
[2017-08-10] MEDS: Gabapentin 250 MG/5 ML Solution ML 470 ML Bottle PO SCH ×3 (09:35→21:05)
[2017-08-10] MEDS: Lisinopril 20 MG Tab PO SCH (09:36)
[2017-08-10] MEDS: tiZANidine 2 MG Tab PO SCH (09:36)
[2017-08-10] MEDS: DULoxetine 30 MG Cap PO SCH ×2 (09:37→20:58)
[2017-08-10] MEDS: busPIRone 10 MG Tab PO SCH ×3 (09:37→20:59)
[2017-08-10] MEDS: Estradiol 0.5 MG Tab PO SCH (09:37)
[2017-08-10] MEDS: Montelukast 10 MG Tab PO SCH (09:38)
[2017-08-10] MEDS: Diclofenac Sodium 1% Gel 100 GM Tube TOP SCH ×3 (11:27→21:07)
[2017-08-10] MEDS: Pantoprazole 40 MG Delayed-Release Granules 1 Packet PO SCH (14:25)
[2017-08-10] MEDS: MVI, Adult with Vitamin K 10 ML, Thiamine 200 MG, Chromium/Copper/Mang/Selen/Zn 1 ML in... IV SCH ×4 (16:44)
[2017-08-11] MEDS: Acetaminophen Soln 650 MG/20.3 ML UD Cup PO SCH (04:11)
[2017-08-11] MEDS: Albuterol/Ipratropium 3.0-0.5 MG/3 ML Neb Soln INH SCH (08:40)
[2017-08-11] MEDS: buPROPion 100 MG Tab PO SCH (09:45)
[2017-08-11] MEDS: Montelukast 10 MG Tab PO SCH (09:45)
[2017-08-11] MEDS: Diclofenac Sodium 1% Gel 100 GM Tube TOP SCH (09:45)
[2017-08-11] MEDS: Celecoxib 200 MG Cap PO SCH (09:45)
[2017-08-11] MEDS: Gabapentin 250 MG/5 ML Solution ML 470 ML Bottle PO SCH (09:45)
[2017-08-11] MEDS: Estradiol 0.5 MG Tab PO SCH (09:45)
[2017-08-11] MEDS: DULoxetine 30 MG Cap PO SCH (09:45)
[2017-08-11] MEDS: busPIRone 10 MG Tab PO SCH (09:45)
[2017-08-11] MEDS: Levothyroxine 100 MCG Tab PO SCH (09:45)
[2017-08-11] MEDS: Betamethasone Dipropionate 0.05% Crm 15 GM Tube TOP SCH (09:45)
[2017-08-11] MEDS: Lisinopril 20 MG Tab PO SCH (09:45)
[2017-08-11] MEDS: tiZANidine 2 MG Tab PO SCH (09:46)
--- NOTE | 2017-08-14 16:40 | PN ---
DATE OF SERVICE: 08/10/2017 The patient has been afebrile with stable vital signs. Blood pressure was noted to be somewhat high, little bit better now that the cuff has been placed on her forearm. She is getting her lisinopril. Otherwise, continues to have some oozing, although clinically appears to be stable coming out the NYA site, there is some old blood. We will check a hemoglobin tomorrow. Otherwise, we will saline lock her today. Encouraged increased activity, have her get in the shower, and encouraged improved oral intake. We will give her some bowel stimulation as well. Wayne Burgess MD /[id number]
--- NOTE | 2017-08-15 07:50 | DISCH ---
FINAL DIAGNOSES: 1. Morbid obesity. 2. Marked hepatomegaly. 3. Paraesophageal diaphragmatic hernia associated with mediastinal lipoma. 4. Immobile small bowel secondary to fatty infiltration of mesentery requiring small bowel resection. SECONDARY DIAGNOSES: Include: 1. Depression and anxiety. 2. Fibromyalgia. 3. History of hypertension. 4. Treated hypothyroidism. 5. Gastroesophageal reflux disease. 6. Degenerative disc disease. 7. Myoclonal gammopathy with associated neuropathy. OPERATIVE PROCEDURES: This was done on 08/08/2017; would be laparoscopic Sanjuanita-en-Y gastric bypass with long limb gastroenterostomy, Yasmany-Cut needle liver biopsy, repair of paraesophageal diaphragmatic hernia along with excision of mediastinal lipoma and small bowel resection to facilitate mobility of jejunojejunostomy. HOSPITAL COURSE: This is a 52-year-old female presenting with a longstanding morbid obesity and perhaps with worsening comorbidities. After preoperative evaluation and discussion, she wished to proceed with a gastric bypass procedure. This was done on the date of admission. Postoperatively, the patient did have some oozing from the NYA drains and received 2 doses of activated factor VII, but at no point was hemodynamically unstable. Her discharge hemoglobin was 10.1. Otherwise, the patient has had no significant postoperative problems. She did have a period of some urinary retention requiring reinsertion of Tena catheter, but since its removal, has had no further problems. She is tolerating step-2 diet and basically is using narcotics at this point for pain management, simply the Celebrex, gabapentin and Tylenol. She will be continued on her usual home medications, splitting them as appropriately with the Wellbutrin XL being substituted for IR with a b.i.d. dosing for the first 2 weeks postoperatively. She will be receiving a one-month course of magnesium oxide with postoperative magnesium being recorded slightly above 8. She has been instructed to continue the step-2 diet until that appointment and hold her vitamins and other supplements until after the first appointment.
--- NOTE | 2017-08-19 09:37 | OR ---
DATE OF PROCEDURE: 08/08/2017 PREOPERATIVE DIAGNOSES: 1. Morbid obesity. 2. Inadequate peripheral venous access. POSTOPERATIVE DIAGNOSES: 1. Morbid obesity. 2. Marked hepatomegaly. 3. Paraesophageal diaphragmatic hernia. 4. Mediastinal lipoma. 5. Immobile small bowel secondary to fatty infiltration of the small bowel mesentery. 6. Inadequate peripheral venous access. PROCEDURES PERFORMED: 1. Laparoscopic Sanjuanita-en-Y gastric bypass with long limb gastroenterostomy (22814). 2. Yasmany-Cut needle liver biopsy (40076). 3. Repair of paraesophageal diaphragmatic hernia (41389). 4. Excision of mediastinal lipoma (63223). 5. Small bowel resection to facilitate mobility of jejunojejunostomy to allow tension-free gastrojejunostomy (35438). 6. Insertion of left subclavian vein triple-lumen catheter (16986). ANESTHESIA: General. BURLAP BAG SEWER: Cori Lopez PA-C INDICATIONS FOR PROCEDURE: This is a 52-year-old presenting with longstanding morbid obesity and increasingly significant comorbidities. After preoperative evaluation and discussion, she wished to proceed with a gastric bypass procedure. On preoperative evaluation, noted to have very limited peripheral venous access, and a central venous catheter will be placed as well. Potential risks of the procedures including bleeding, infection, injury to underlying viscera, leaks from various GI tract closures, possible problems with bowel obstruction over time, as well as the possibility of cardiopulmonary, septic, or hemorrhagic complications leading to were all discussed, and the patient wishes to proceed. Additionally, with regard to the central line, additional possible complications such as injury to the vasculature or lungs were likewise gone over, and the patient wishes to proceed. PROCEDURE IN DETAIL: The patient was taken to the operating room and placed in a supine position. After general endotracheal anesthesia was induced, she was then converted to a lithotomy position. Initially, the upper chest and neck areas were prepped and draped, left subclavian vein cannulated, the guidewire passed, and over the guidewire, a triple-lumen catheter inserted. Good in and outflow was noted, and the ports were flushed with heparinized saline, and the catheter was secured to the skin with some 3-0 silk. Subsequent chest x-ray showed good catheter placement. Following this, the abdomen was prepped and draped, and an orogastric tube was placed. In the area 15 cm inferior, 5 cm left of xiphoid process, a transverse incision was made and the peritoneal cavity entered under direct vision with Optiview trocar, inflated to 15 mmHg pressure of CO2. Laparoscope was then reinserted. No underlying trocar insertion site injuries were seen. Following this, under direct vision, bilateral subcostal fat blocks were placed with direct visualization of the needle tip to be within the transversus abdominis plane. Standard injection was placed bilaterally. Following this, 5 additional trocars were placed across the upper mid abdomen, and general exploration was undertaken. The patient was noted to have marked hepatomegaly with liver volume being roughly 2 to 3 times the normal, the liver grossly fatty infiltrated. Yasmany-Cut needle biopsies obtained from the left lobe of the liver. Minimal bleeding from the biopsy sites, was controlled with electrocautery. The omentum was then divided in the midline at the level of the transverse colon. This allowed identification of the small bowel to the ligament of Treitz. Small bowel was then traced out 200 cm distal to that point, where it was divided transversely with a REYNALDO stapler. The biliopancreatic limb side of this divided small bowel was noted to be quite immobile due to marked thickening of the mesentery of the small bowel, which would tend to hinder the mobility of the jejunojejunostomy to allow tension-free anastomosis at the level of the gastrojejunostomy. Given this, around 10 cm of the small bowel on the biliopancreatic limb side was resected, after dividing the underlying mesentery, and dividing the bowel once again with the REYNALDO stapler, and that specimen delivered from the field. The small bowel was then traced out distally and additional 200 cm where the [id number] enteroenterostomy was accomplished with internal firing of the Endo-REYNALDO 60 mm stapler. The common opening was then closed transversely with the same stapler, angles anastomosed, and mesenteric defect approximated with some 0 Ethibond stitch, along with fibrin sealant. The divided end of the Sanjuanita limb was then from the mesentery for a few centimeters, which allowed an antecolic position of the Sanjuanita limb up to the level of the gastroesophageal junction without tension. The liver was then retracted anteriorly. The patient was noted to have a moderate-sized paraesophageal diaphragmatic hernia. This contained some prolapse of the gastric fundus and perigastric fat in a plane anterior to the course of the esophagus. This was reduced, and the peritoneum overlying it incised and reflected downward. A mediastinal lipoma was encountered during the course of dissection which, to facilitate adequate repair of the hernia, was excised and sent for pathologic evaluation. An anterior repair of the diaphragmatic hernia was accomplished with a series of 0 Ethibond sutures reinforced with PTFE pledgets. The gastrointestinal balloon catheter was inflated to 15 mL and pulled up snugly against the EG junction. Gastric wall over the apex of the balloon was marked with electrocautery, and the balloon catheter deflated and pulled up from the esophagus. The lesser omental tissue adjacent to the gastric cardia was then incised, allowing dissection behind the stomach at that level. Pouch formation was initiated with transverse firing of the REYNALDO stapler at the level of the cauterized danial in the gastric cardia. The pouch was then completed with some additional firings of REYNALDO staplers up to and through the angle of His. Upon completion of the pouch, both staple lines were noted to be intact. The anvil of a 25-mm EEA stapler was attached to Heard sump-type tube that was brought down through the mouth and taken out through a small opening in the gastric pouch, allowing the anvil likewise to be placed into the gastric pouch. Divided end of the Sanjuanita limb was then opened, and the main body of the EEA stapler passed several centimeters into the lumen of the small bowel, brought up to the anvil, and united with it, thus creating the gastrojejunostomy. Upon removal of the stapler, double donuts of mucosa were noted within the small bowel, was closed off with a vascular staple line. Gastrojejunostomy was then reinforced with some 3-0 Vicryl seromuscular stitch, along with a fibrin sealant. A leak test was accomplished with injection of 120 mL of air in the gastric pouch while submerged in the cefoxitin-containing saline solution. No leaks were identified. A single Angelito- Brice drain was taken out through the left lateral trocar site and positioned adjacent to the gastrojejunostomy,and from there, up into the splenic fossa. The trocars were then sequentially removed. The peritoneal cavity was deflated. Incisions were closed with 4-0 Vicryl subcuticular stitch, which was also used to affix the drain. A dressing was applied. The patient was taken to the recovery room in satisfactory condition. Physician payroll administrative assistant, Cori Lopez, played an essential role in assisting in this case, helping to position the patient, retract structures as needed, as well as suturing and cutting sutures as indicated. The presence improved patient safety and decreased operative time. Wayne Burgess MD /[id number]
== END 2017-08-11 09:40 | disposition home or self-care (01) | DRG 621 ==
LOC: JP.SDS 06:30 → JP.MS 06:30 → EDSTATUS 09:30 → JP.2SS 12:00
PROVIDERS: ADMIT Surgery; ATTEND Surgery
PROC: 0D164ZA Bypass Stomach to Jejunum, Percutaneous Endoscopic Approach (ICD-10-PCS; principal; 2017-08-08)
PROC: 0BQT4ZZ Repair Diaphragm, Percutaneous Endoscopic Approach (ICD-10-PCS; 2017-08-08)
PROC: 0FB24ZX Excision of Left Lobe Liver, Percutaneous Endoscopic Approach, Diagnostic (ICD-10-PCS; 2017-08-08)
PROC: 3E0T3BZ Introduction of Anesthetic Agent into Peripheral Nerves and Plexi, Percutaneous Approach (ICD-10-PCS; 2017-08-08)
PROC: 0WBC4ZX Excision of Mediastinum, Percutaneous Endoscopic Approach, Diagnostic (ICD-10-PCS; 2017-08-08)
PROC: 0DB94ZX Excision of Duodenum, Percutaneous Endoscopic Approach, Diagnostic (ICD-10-PCS; 2017-08-08)
PROC: 05HY33Z Insertion of Infusion Device into Upper Vein, Percutaneous Approach (ICD-10-PCS; 2017-08-08)
DX: E66.01 Morbid (severe) obesity due to excess calories (principal); D17.4 Benign lipomatous neoplasm of intrathoracic organs; Z68.42 Body mass index [BMI] 45.0-49.9, adult; K44.9 Diaphragmatic hernia without obstruction or gangrene; R16.0 Hepatomegaly, not elsewhere classified; G60.0 Hereditary motor and sensory neuropathy; E89.0 Postprocedural hypothyroidism; D47.2 Monoclonal gammopathy; I10 Essential (primary) hypertension; R56.9 Unspecified convulsions; T41.3X5A Adverse effect of local anesthetics, initial encounter; Y92.238 Other place in hospital as the place of occurrence of the external cause; F32.9 Major depressive disorder, single episode, unspecified; F41.9 Anxiety disorder, unspecified; M79.7 Fibromyalgia; K21.9 Gastro-esophageal reflux disease without esophagitis; M54.9 Dorsalgia, unspecified; G89.29 Other chronic pain; M51.36 Other intervertebral disc degeneration, lumbar region; J45.909 Unspecified asthma, uncomplicated; Z88.1 Allergy status to other antibiotic agents; Z88.8 Allergy status to other drugs, medicaments and biological substances; Z79.82 Long term (current) use of aspirin; K59.8 Other specified functional intestinal disorders
CPT/HCPCS: 36415; 51702; 71045; 74240; 74240-26; 80048; 80053; 82962; 83036; 83735; 84100; 85027; 86850; 86900; 86901; 88304; 88307; 88313; 94640; 94762; A9270-GY; C9113; J0171; J0694; J1100; J1170; J1642; J2001; J2175; J2405; J2704; J2795; J3010; J3410; J3411; J3420; J7030; J7042; J7050; J7120; J7189; J7620; Q9967